=== PATIENT | female | born 1950 | race Caucasian/White ===

== ENCOUNTER 2017-04-17 12:02 | Inpatient (IN) | payer OTHER ==
[~2017-04-17] VITALS: Ht 170.2 cm; Wt 85.6 kg
[~2017-04-17 12:02] MED LIST: ACET1TAB84 PO; ASPEC81 PO; LPR25 PO; PRED5PAK3 PO; TMF75 PO
[2017-04-17] MEDS ORDERED: SODIUM CHLORIDE 0.9% 1000ML 1,000 ML IV STA ×2 (12:29→12:50)
[2017-04-17] MEDS ORDERED: ONDANSETRON INJ 2 MG/ML 2 ML VIAL IV STA (12:50)
--- NOTE | 2017-04-17 12:54 | EMERGENCY ROOM VISIT NOTE ---
History First contact with patient: 12:29 Chief Complaint: KIDNEY STONE Stated Complaint: ABD PAIN, VOM, SEVERE L SIDE PAIN, KIDNEY STONE History of Present Illness The patient is a 67 year old female who presents to the Emergency Room with complaints of left abdominal pain. The patient also notes the following associated symptoms, nausea, vomiting, chills, urinary pressure, and dry mouth. This started 3 days ago and is worsening. The patient has tried relieving factors, tylenol, without relief. Pt denies LOC, headache, fevers, diaphoresis, visual changes, neck pain, chest pain, breathing difficulties, back pain, melena, hematochezia,numbness, weakness, lymphadenopathy, rash, or other complaints. Review of Systems See HPI for pertinent positives and negatives. A total of ten systems were reviewed and were otherwise negative. Past Medical/Surgical History Medical Problems: (1) Kidney stones (2) Knee effusion, left (3) Leg pain, left (4) Renal calculus, left Surgical Problems: (1) History of partial hysterectomy (2) Hx of cholecystectomy Family History Blood clots Social History Smoking Status: Former Smoker Drug Use: none Marital Status: Housing Status: lives with significant other Occupation Status: employed Current/Historical Medications Scheduled PRN Acetaminophen (Tylenol Arthritis Ext Rel), 1,300 MG PO BID PRN for Pain or Fever Physical Exam Vital Signs Date Time Temp Pulse Resp B/P (MAP) Pulse Ox O2 Delivery O2 Flow Rate FiO2 04/17/17 14:55 80 18 157/84 97 Nasal Cannula 2.0 04/17/17 13:59 84 18 184/84 99 Nasal Cannula 2.0 04/17/17 13:15 93 04/17/17 13:14 100 Nasal Cannula 2.0 04/17/17 13:12 85 Room Air 04/17/17 13:02 93 18 129/109 98 Room Air 04/17/17 12:07 36.6 94 20 184/109 96 Room Air Physical Exam GENERAL: Awake, alert, very uncomfortable-appearing, in distress HENT: Normocephalic, atraumatic. Oropharynx unremarkable. EYES: Normal conjunctiva. Sclera non-icteric. NECK: Supple. No nuchal rigidity. FROM. No JVD. RESPIRATORY: Clear to auscultation. CARDIAC: Regular rate, normal rhythm. Extremities warm and well perfused. Pulses equal. ABDOMEN: Soft, non-distended. Left sided tenderness to palpation. No rebound or guarding. No masses. RECTAL: Deferred. MUSCULOSKELETAL: Chest examination reveals no tenderness. The back is symmetrical on inspection without obvious abnormality. There is no CVA tenderness to palpation. No joint edema. LOWER EXTREMITIES: Calves are equal size bilaterally and non-tender. No edema. No discoloration. NEURO: Normal sensorium. No sensory or motor deficits noted. SKIN: No rash or jaundice noted. Medical Decision & Procedures Laboratory Results 04/17/17 12:30 Red Blood Count 4.53, Mean Corpuscular Volume 89.0, Mean Corpuscular Hemoglobin 30.7, Mean Corpuscular Hemoglobin Concent 34.5, Mean Platelet Volume 10.1, Neutrophils (%) (Auto) 68.4, Lymphocytes (%) (Auto) 23.4, Monocytes (%) (Auto) 6.9, Eosinophils (%) (Auto) 0.9, Basophils (%) (Auto) 0.1, Neutrophils # (Auto) 10.24, Lymphocytes # (Auto) 3.50, Monocytes # (Auto) 1.04, Eosinophils # (Auto) 0.14, Basophils # (Auto) 0.02 04/17/17 12:30 Test 04/17/17 12:30 White Blood Count 14.98 K/uL (4.8-10.8) Red Blood Count 4.53 M/uL (4.2-5.4) Hemoglobin 13.9 g/dL (12.0-16.0) Hematocrit 40.3 % (37-47) Mean Corpuscular Volume 89.0 fL (80-100) Mean Corpuscular Hemoglobin 30.7 pg (25-34) Mean Corpuscular Hemoglobin Concent 34.5 g/dl (32-36) Platelet Count 253 K/uL (130-400) Mean Platelet Volume 10.1 fL (7.4-10.4) Neutrophils (%) (Auto) 68.4 % Lymphocytes (%) (Auto) 23.4 % Monocytes (%) (Auto) 6.9 % Eosinophils (%) (Auto) 0.9 % Basophils (%) (Auto) 0.1 % Neutrophils # (Auto) 10.24 K/uL (1.4-6.5) Lymphocytes # (Auto) 3.50 K/uL (1.2-3.4) Monocytes # (Auto) 1.04 K/uL (0.11-0.59) Eosinophils # (Auto) 0.14 K/uL (0-0.5) Basophils # (Auto) 0.02 K/uL (0-0.2) RDW Standard Deviation 40.7 fL (36.4-46.3) RDW Coefficient of Variation 12.6 % (11.5-14.5) Immature Granulocyte % (Auto) 0.3 % Immature Granulocyte # (Auto) 0.04 K/uL (0.00-0.02) Anion Gap 8.0 mmol/L (3-11) Est Creatinine Clear Calc Drug Dose 54.8 ml/min Estimated GFR () 57.8 Estimated GFR (Non- 49.9 BUN/Creatinine Ratio 15.0 (10-20) Calcium Level 9.9 mg/dl (8.5-10.1) Total Bilirubin 0.3 mg/dl (0.2-1) Direct Bilirubin < 0.1 mg/dl (0-0.2) Aspartate Amino Transf (AST/SGOT) 21 U/L (15-37) Alanine Aminotransferase (ALT/SGPT) 31 U/L (12-78) Alkaline Phosphatase 84 U/L (45-117) Total Protein 8.1 gm/dl (6.4-8.2) Albumin 3.9 gm/dl (3.4-5.0) Lipase 231 U/L (73-393) Medications Administered Medications (Trade) Dose Ordered Sig/Leobardo Route Start Time Stop Time Status Last Admin Dose Admin Sodium Chloride 1,000 ml @ 125 mls/hr Q8H STAT IV 04/17/17 12:29 04/17/17 17:42 DC 04/17/17 13:05 125 MLS/HR Hydromorphone HCl (Dilaudid Inj) 1 mg Q15M PRN IV 04/17/17 13:00 04/17/17 17:43 DC 04/17/17 13:57 1 MG Ondansetron HCl (Zofran Inj) 4 mg NOW STAT IV 04/17/17 12:50 04/17/17 12:52 DC 04/17/17 13:06 4 MG Sodium Chloride 1,000 ml @ 999 mls/hr Q1H1M STAT IV 04/17/17 12:50 04/17/17 13:50 DC 04/17/17 13:05 999 MLS/HR Tamsulosin HCl (Flomax Cap) 0.4 mg NOW ONCE PO 04/17/17 15:45 04/17/17 15:57 DC 04/17/17 16:44 0.4 MG Medical Decision Triage Nursing notes reviewed. The patient's presentation and history were concerning for left flank pain and vomiting. Etiologies such as renal colic, appendicitis, diverticulitis, mesenteric ischemia, aortic pathology, infections, inflammatory bowel disease, PUD, biliary pathology, UTI, as well as others were entertained. The patient was evaluated. She was treated with IV Dilaudid and Zofran. She was hydrated. She required multiple doses of Dilaudid. Her CBC showed a leukocytosis of 14,000. Chemistry panel was unremarkable. The patient's urinalysis is pending. She underwent CT imaging and this showed an obstructing stone. Given her intractable pain and obstructing stone she will need further evaluation and management in the hospital. I did discuss the case with the [facility] hospitalist. The patient was evaluated in the Emergency Room for further treatment. Consults Consulting Physician: Dr. Orellana Will see for admission secondary to intractable flank pain and obstructing stone. Impression Primary Impression: Renal calculus, left Departure Information Dispostion Being Evaluated By Hospitalist Referrals Rhett Diallo M.D. (PCP) Patient Instructions My [facility]
[2017-04-17 12:59] LABS: ALBUMIN 3.9 gm/dl (3.4-5.0); AST/SGOT 21 U/L (15-37); BLOOD UREA NITROGEN 17 mg/dl (7-18); CALCIUM 9.9 mg/dl (8.5-10.1); CARBON DIOXIDE 24 mmol/L (21-32); CREATININE 1.15 mg/dl (0.60-1.20); GLUCOSE 135 mg/dl (70-99); LIPASE 231 U/L (73-393); POTASSIUM 3.7 mmol/L (3.5-5.1); SODIUM 137 mmol/L (136-145)
[2017-04-17 13:00] LABS: BASO % 0.1 %; BASO ABS # 0.02 K/uL (0-0.2); EOS % 0.9 %; EOS ABS # 0.14 K/uL (0-0.5); HEMATOCRIT 40.3 % (37-47); HEMOGLOBIN 13.9 g/dL (12.0-16.0); IG# 0.04 K/uL (0.00-0.02); LYMPH % 23.4 %; MEAN CORPUSCULAR HEMOGLOBIN 30.7 pg (25-34); MEAN CORPUSCULAR HGB CONC 34.5 g/dl (32-36); MEAN PLATELET VOLUME 10.1 fL (7.4-10.4); MONO % 6.9 %; MONO ABS # 1.04 K/uL (0.11-0.59); NEUT % 68.4 %; NEUT ABS # 10.24 K/uL (1.4-6.5); PLATELET COUNT 253 K/uL (130-400); RED CELL DISTRIBUTION WIDTH CV 12.6 % (11.5-14.5); RED CELL DISTRIBUTION WIDTH SD 40.7 fL (36.4-46.3); WHITE BLOOD COUNT 14.98 K/uL (4.8-10.8)
[2017-04-17 13:03] LABS: ALKALINE PHOSPHATASE 84 U/L (45-117); ALT/SGPT 31 U/L (12-78); TOTAL PROTEIN 8.1 gm/dl (6.4-8.2)
[2017-04-17] MEDS: HYDROmorphone INJ 1 MG/ML SYR IV PRN ×2 (13:06→13:57)
--- NOTE | 2017-04-17 13:51 | DIAGNOSTIC IMAGING REPORT ---
ABD/PELVIS WITHOUT FOR STONE CLINICAL HISTORY: 67 years-old Female presenting with left flank pain, history of renal stones, nausea and vomiting. TECHNIQUE: Multidetector CT of the abdomen and pelvis was performed without the use of intravenous contrast. IV contrast: None. A dose lowering technique was used consistent with the principles of ALARA (as low as reasonably achievable). COMPARISON: 05/27/2015. CT DOSE (mGy.cm): The estimated cumulative dose is 1353.48 mGy.cm. FINDINGS: [employer] topogram: Cholecystectomy clips. Lung bases: 3 mm solid peripheral nodule in the left lower lobe, unchanged since prior CTA chest from 05/26/2015. Coronary artery and aortic valve calcification. Normal heart size. No pericardial or pleural effusion. Liver: Normal morphology. Density consistent with hepatic steatosis. Well-defined hypodensity in the medial segment of the left hepatic lobe, indeterminate but likely hepatic cyst, unchanged from prior. Biliary: Mild biliary ductal prominence likely a reservoir effect in the post cholecystectomy state. Gallbladder surgically absent. Pancreas: Mild parenchymal atrophy. Spleen: Normal noncontrast appearance. Adrenal glands: Normal noncontrast appearance. Kidneys and ureters: Obstructing 7 mm calculus at the left ureterovesical junction with resultant mild left hydroureteronephrosis. Mild left perinephric fat stranding and subtle left renal enlargement noted. The left renal parenchyma is mildly edematous. No additional calculi are evident in either kidney or ureter. Bladder: Normal. No bladder calculi. Pelvic organs: Uterus surgically absent. Normal noncontrast appearance of the ovaries. Bowel: Diverticulosis of the descending and sigmoid colon. No pericolonic fat infiltration. Few scattered diverticula noted elsewhere in the colon. The appendix is normal. No bowel obstruction. Small hiatal hernia may be present. Peritoneal cavity: No free fluid or intraperitoneal gas. Lymph nodes: No gross lymphadenopathy allowing for noncontrast technique. Vasculature: Atherosclerosis of the normal caliber abdominal aorta. Abdominal wall: Normal. Musculoskeletal: Degenerative changes of the spine. Anterior vertebral body height loss of T11 unchanged from prior exam. Mild osteopenia. IMPRESSION: 1. Obstructing 7 mm calculus at the left ureterovesical junction with resultant mild left hydroureteronephrosis. No additional renal or ureteral calculus. 2. Mild osteopenia. Electronically signed by: Saulo Willson M.D. 04/17/2017 1:49 PM Dictated Date/Time: 04/17/2017 1:41 PM
[2017-04-17] MEDS ORDERED: MAGNESIUM HYDROXIDE SUSP 30 ML UDC PO PRN (15:45)
[2017-04-17] MEDS ORDERED: ACETAMINOPHEN 325 MG TAB PO PRN (15:45)
[2017-04-17] MEDS ORDERED: ALUMINUM/MAGNESIUM/SIMETH (MAALOX MAX) 30 ML UDC PO PRN (15:45)
[2017-04-17] MEDS ORDERED: ONDANSETRON INJ 2 MG/ML 2 ML VIAL IV PRN (15:45)
[2017-04-17] MEDS ORDERED: POLYETHYLENE (MIRALAX) 17 GM PACK PO PRN (15:45)
[2017-04-17] MEDS ORDERED: HYDROmorphone INJ 1 MG/ML SYR IV PRN (15:45)
[2017-04-17] MEDS ORDERED: TAMSULOSIN HCL 0.4 MG CAP PO ONE (15:45)
--- NOTE | 2017-04-17 15:59 | History and Physical ---
History & Physical Date & Time of Service: Apr 17, 2017 at 15:50 Chief Complaint: Abd Pain, Vom, Severe L Side Pain, Kidney Stone Primary Care Physician: Rhett Diallo M.D. History of Present Illness Source: patient, clinic records, hospital records Patient is a pleasant 67 y/o female, with PMHx of nephrolithiasis and diastolic dysfunction, who presented to the ED because of L flank pain radiating to groin and N/V x2 days. 2 weeks ago patient started to experience urinary frequency and hesitancy. She thought maybe she was getting a UTI. Symptoms continued to worsening and two days ago she started to experience the flank pain and N/V. Patient was found to have 7 mm calculus at L ureterovesical junction w/ L hydro. She was treated w/ IV Dilaudid and IVF in ED- pain is currently well controlled. She does have a h/o kidney stones resulting in sepsis and requiring stent placement by Dr. Berumen. +chills. Patient denies any fever, sweats, lightheadedness, dizziness, vision changes, CP, palpitations, edema, SOB, wheezing, cough, diarrhea, melena, numbness/tingling, weakness, muscle/joint pain, anxiety/depression, active bleeding, or new skin discoloration/changes. Past Medical/Surgical History Medical Problems: nephrolithiasis diastolic dysfunction Surgical Problems: History of partial hysterectomy Hx of cholecystectomy L foot surgery R shoulder surgery Family History Cancer, HTN, heart disease Social History Smoking Status: Former Smoker Drug Use: none Marital Status: Occupational Status: employed Immunizations History of Influenza Vaccine: No History of Tetanus Vaccine?: Yes Tetanus Immunization Date: July 19, 2006 History of Pneumococcal: No History of Hepatitis B Vaccine: Yes Hepatitis Immunization Date: Jan 20, 1992 Multi-Drug Resistant Organisms History of MDRO: No Allergies Coded Allergies: Diclofenac (Verified Allergy, Unknown, MOUTH THICKNESS AND NUMBNESS, ) ABLE TO TAKE ASPIRIN WITHOUT PROBLEMS Home Medications Scheduled PRN Acetaminophen (Tylenol Arthritis Ext Rel), 1,300 MG PO BID PRN for Pain or Fever Physical Exam Vital Signs Date Time Temp Pulse Resp B/P (MAP) Pulse Ox O2 Delivery O2 Flow Rate FiO2 04/17/17 14:55 80 18 157/84 97 Nasal Cannula 2.0 04/17/17 13:59 84 18 184/84 99 Nasal Cannula 2.0 04/17/17 13:15 93 04/17/17 13:14 100 Nasal Cannula 2.0 04/17/17 13:12 85 Room Air 04/17/17 13:02 93 18 129/109 98 Room Air 04/17/17 12:07 36.6 94 20 184/109 96 Room Air General Appearance: no apparent distress Head: normocephalic, atraumatic Eyes: normal inspection, PERRL ENT: hearing grossly normal Neck: supple Respiratory/Chest: lungs clear, no respiratory distress, no accessory muscle use Cardiovascular: regular rate, rhythm Abdomen/GI: normal bowel sounds, non tender, soft Back: normal inspection Extremities/Musculoskelatal: no calf tenderness, no pedal edema Neurologic/Psych: alert, normal mood/affect, oriented x 3 Skin: normal color, warm/dry, no rash Diagnostics Laboratory Results Results Past 24 Hours Test 04/17/17 12:30 Range/Units White Blood Count 14.98 4.8-10.8 K/uL Red Blood Count 4.53 4.2-5.4 M/uL Hemoglobin 13.9 12.0-16.0 g/dL Hematocrit 40.3 37-47 % Mean Corpuscular Volume 89.0 80-100 fL Mean Corpuscular Hemoglobin 30.7 25-34 pg Mean Corpuscular Hemoglobin Concent 34.5 32-36 g/dl Platelet Count 253 130-400 K/uL Mean Platelet Volume 10.1 7.4-10.4 fL Neutrophils (%) (Auto) 68.4 % Lymphocytes (%) (Auto) 23.4 % Monocytes (%) (Auto) 6.9 % Eosinophils (%) (Auto) 0.9 % Basophils (%) (Auto) 0.1 % Neutrophils # (Auto) 10.24 1.4-6.5 K/uL Lymphocytes # (Auto) 3.50 1.2-3.4 K/uL Monocytes # (Auto) 1.04 0.11-0.59 K/uL Eosinophils # (Auto) 0.14 0-0.5 K/uL Basophils # (Auto) 0.02 0-0.2 K/uL RDW Standard Deviation 40.7 36.4-46.3 fL RDW Coefficient of Variation 12.6 11.5-14.5 % Immature Granulocyte % (Auto) 0.3 % Immature Granulocyte # (Auto) 0.04 0.00-0.02 K/uL Sodium Level 137 136-145 mmol/L Potassium Level 3.7 3.5-5.1 mmol/L Chloride Level 105 98-107 mmol/L Carbon Dioxide Level 24 21-32 mmol/L Anion Gap 8.0 3-11 mmol/L Blood Urea Nitrogen 17 7-18 mg/dl Creatinine 1.15 0.60-1.20 mg/dl Est Creatinine Clear Calc Drug Dose 54.8 ml/min Estimated GFR () 57.8 Estimated GFR (Non- 49.9 BUN/Creatinine Ratio 15.0 10-20 Random Glucose 135 70-99 mg/dl Calcium Level 9.9 8.5-10.1 mg/dl Total Bilirubin 0.3 0.2-1 mg/dl Direct Bilirubin < 0.1 0-0.2 mg/dl Aspartate Amino Transf (AST/SGOT) 21 15-37 U/L Alanine Aminotransferase (ALT/SGPT) 31 12-78 U/L Alkaline Phosphatase 84 45-117 U/L Total Protein 8.1 6.4-8.2 gm/dl Albumin 3.9 3.4-5.0 gm/dl Lipase 231 73-393 U/L Diagnostic Radiology ABD/PELVIS WITHOUT FOR STONE CLINICAL HISTORY: 67 years-old Female presenting with left flank pain, history of renal stones, nausea and vomiting. TECHNIQUE: Multidetector CT of the abdomen and pelvis was performed without the use of intravenous contrast. IV contrast: None. A dose lowering technique was used consistent with the principles of ALARA (as low as reasonably achievable). COMPARISON: 05/27/2015. CT DOSE (mGy.cm): The estimated cumulative dose is 1353.48 mGy.cm. FINDINGS: [employer] topogram: Cholecystectomy clips. Lung bases: 3 mm solid peripheral nodule in the left lower lobe, unchanged since prior CTA chest from 05/26/2015. Coronary artery and aortic valve calcification. Normal heart size. No pericardial or pleural effusion. Liver: Normal morphology. Density consistent with hepatic steatosis. Well-defined hypodensity in the medial segment of the left hepatic lobe, indeterminate but likely hepatic cyst, unchanged from prior. Biliary: Mild biliary ductal prominence likely a reservoir effect in the post cholecystectomy state. Gallbladder surgically absent. Pancreas: Mild parenchymal atrophy. Spleen: Normal noncontrast appearance. Adrenal glands: Normal noncontrast appearance. Kidneys and ureters: Obstructing 7 mm calculus at the left ureterovesical junction with resultant mild left hydroureteronephrosis. Mild left perinephric fat stranding and subtle left renal enlargement noted. The left renal parenchyma is mildly edematous. No additional calculi are evident in either kidney or ureter. Bladder: Normal. No bladder calculi. Pelvic organs: Uterus surgically absent. Normal noncontrast appearance of the ovaries. Bowel: Diverticulosis of the descending and sigmoid colon. No pericolonic fat infiltration. Few scattered diverticula noted elsewhere in the colon. The appendix is normal. No bowel obstruction. Small hiatal hernia may be present. Peritoneal cavity: No free fluid or intraperitoneal gas. Lymph nodes: No gross lymphadenopathy allowing for noncontrast technique. Vasculature: Atherosclerosis of the normal caliber abdominal aorta. Abdominal wall: Normal. Musculoskeletal: Degenerative changes of the spine. Anterior vertebral body height loss of T11 unchanged from prior exam. Mild osteopenia. IMPRESSION: 1. Obstructing 7 mm calculus at the left ureterovesical junction with resultant mild left hydroureteronephrosis. No additional renal or ureteral calculus. 2. Mild osteopenia. Electronically signed by: Saulo Willson M.D. 04/17/2017 1:49 PM Dictated Date/Time: 04/17/2017 1:41 PM The status of this report is Signed. Draft = Not yet reviewed or approved by Radiologist. Signed = Reviewed and approved by Radiologist. Impression Assessment and Plan Patient is a pleasant 67 y/o female, with PMHx of nephrolithiasis and diastolic dysfunction, who presented to the ED because of L flank pain radiating to groin and N/V x2 days. L ureterovesical junction w/ L hydro: - Admit to med/surg - UA and BCx pending - Leukocytosis- start IV Rocephin - Flomax 0.4 mg daily - Strain urine - IV NSS @ 100 ml/hr - IV Dilaudid 1 mg q3 hrs PRN for pain management and Tylenol PRN for pain/ fever - Will make NPO after midnight incase procedure warranted tomorrow - Consult urology, appreciate recommendations GI prophylaxis: Protonix daily DVT prophylaxis: TEDs, SCDs, ambulation; hold chemical anticoagulation pending urology consultation Code status: LEVEL I, FULL Dispo: From home- no discharge needs anticipated Level of Care Med/Surg Resuscitation Status FULL RESUSCITATION VTE Prophylaxis VTE Risk Assessment Done? Y/N: Yes Risk Level: Moderate Given or contraindicated: Contraindicated Note Attending Admission Note & Attestation: Pt seen/examined, chart reviewed, care plan d/w LEN Angulo. I agree w/ the benites components of her admission documentation. 67yo female with h/o multiple kidney stones over the years some of which required intervention who presented with left flank pain radiating to the left groin. +frequency, nausea, emesis but no fever. Some chills, however. Found to have 7mm left-sided UVJ stone causing obstruction. At the time of my assessment her pain was much better following pain meds in the ER. PMH, PSH, allergies, meds, sochx, famhx, ros - reviewed VSS, no fever gen - nad neck - no JVD mouth - MMM heart - RRR, s1, s2 lungs - CTA b/l abd - minimal tenderness left flank, BS+, ND, soft ext - no edema A/P: 7mm left-sided UVJ kidney stone leukocytosis with question early UTI/pyelonephritis in setting of the stone - u/ a pending h/o diastolic dysfunction but appears compensated on physical exam agree with IVF, NPO after MN in the event she needs intervention, urology consultation, pain control, rocephin while awaiting urine culture Don Castro MD
[2017-04-17 16:22] VITALS: Ht 170.2 cm; Wt 85.6 kg
[2017-04-17 17:05] VITALS: BP 171/85; PULSE 93; TEMP 36.4; O2SAT 93
[2017-04-17] MEDS: SODIUM CHLORIDE 0.9% 1000ML 1,000 ML IV SCH (17:45)
[2017-04-17] MEDS ORDERED: CEFTRIAXONE SOD INJ 1 GM in DEXTROSE 5% ADD-VANTAGE 50ML 50 ML IV SCH (18:00)
[2017-04-17 23:02] VITALS: BP 131/78; PULSE 71; TEMP 36.5; O2SAT 96
[2017-04-18] MEDS: SODIUM CHLORIDE 0.9% 1000ML 1,000 ML IV SCH (03:26)
[2017-04-18 07:50] VITALS: BP 114/74; PULSE 59; TEMP 36.5; O2SAT 96
[2017-04-18 08:00] VITALS: O2SAT 96
[2017-04-18 08:22] LABS: HEMATOCRIT 34.5 % (37-47); HEMOGLOBIN 11.3 g/dL (12.0-16.0); MEAN CELL VOLUME 91.5 fL (80-100); MEAN CORPUSCULAR HGB CONC 32.8 g/dl (32-36); MEAN PLATELET VOLUME 9.8 fL (7.4-10.4); PLATELET COUNT 171 K/uL (130-400); RED CELL DISTRIBUTION WIDTH CV 12.8 % (11.5-14.5); WHITE BLOOD COUNT 6.65 K/uL (4.8-10.8)
--- NOTE | 2017-04-18 08:41 | Urology Consultation ---
History General Date of Service: Apr 18, 2017. Chief Complaint: left ureteral stone Primary Care Physician: Rhett Diallo M.D. Pt seen a urologist before?: Yes (Dr. Berumen ) If yes, why?: nephrolithiasis History of Present Illness 67 yo female presents to [facility] with c/o left flank pain that started 4 days ago. She reports the pain was accompanied by n/v and chills. CT scan on admission shows a 7mm left UVJ stone. She reports a hx of stent placement by Dr. Berumen many years ago for sepsis. UA today showing some pyuria and hematuria. She denies any dysuria or hematuria this morning. She is afebrile. White count has normalized since admission. Cr was normal at 1.15 on admission. She reports all pain has resolved this morning as she has passed a stone. Appears to have a stone approximately 5-7mm in size in a specimen cup this morning. Imaging Imaging: CT Laboratory Last 24 Hours Test 04/17/17 12:30 04/17/17 23:15 04/18/17 07:49 White Blood Count 14.98 K/uL 6.65 K/uL Red Blood Count 4.53 M/uL 3.77 M/uL Hemoglobin 13.9 g/dL 11.3 g/dL Hematocrit 40.3 % 34.5 % Mean Corpuscular Volume 89.0 fL 91.5 fL Mean Corpuscular Hemoglobin 30.7 pg 30.0 pg Mean Corpuscular Hemoglobin Concent 34.5 g/dl 32.8 g/dl Platelet Count 253 K/uL 171 K/uL Mean Platelet Volume 10.1 fL 9.8 fL Neutrophils (%) (Auto) 68.4 % Lymphocytes (%) (Auto) 23.4 % Monocytes (%) (Auto) 6.9 % Eosinophils (%) (Auto) 0.9 % Basophils (%) (Auto) 0.1 % Neutrophils # (Auto) 10.24 K/uL Lymphocytes # (Auto) 3.50 K/uL Monocytes # (Auto) 1.04 K/uL Eosinophils # (Auto) 0.14 K/uL Basophils # (Auto) 0.02 K/uL RDW Standard Deviation 40.7 fL 43.0 fL RDW Coefficient of Variation 12.6 % 12.8 % Immature Granulocyte % (Auto) 0.3 % Immature Granulocyte # (Auto) 0.04 K/uL Sodium Level 137 mmol/L Potassium Level 3.7 mmol/L Chloride Level 105 mmol/L Carbon Dioxide Level 24 mmol/L Anion Gap 8.0 mmol/L Blood Urea Nitrogen 17 mg/dl Creatinine 1.15 mg/dl Est Creatinine Clear Calc Drug Dose 54.8 ml/min Estimated GFR () 57.8 Estimated GFR (Non- 49.9 BUN/Creatinine Ratio 15.0 Random Glucose 135 mg/dl Calcium Level 9.9 mg/dl Total Bilirubin 0.3 mg/dl Direct Bilirubin < 0.1 mg/dl Aspartate Amino Transf (AST/SGOT) 21 U/L Alanine Aminotransferase (ALT/SGPT) 31 U/L Alkaline Phosphatase 84 U/L Total Protein 8.1 gm/dl Albumin 3.9 gm/dl Lipase 231 U/L Urine Color YELLOW Urine Appearance CLEAR Urine pH 7.5 Urine Specific [place] 1.018 Urine Protein NEG Urine Glucose (UA) NEG Urine Ketones NEG Urine Occult Blood 2+ Urine Nitrite NEG Urine Bilirubin NEG Urine Urobilinogen NEG Urine Leukocyte Esterase SMALL Urine WBC (Auto) 10-30 /hpf Urine RBC (Auto) >30 /hpf Urine Hyaline Casts (Auto) 10-30 /lpf Urine Epithelial Cells (Auto) >30 /lpf Urine Bacteria (Auto) NEG Urine Renal Epithelial Cells 5-10 /lpf Problem List Medical Problems: (1) Abnormal EKG Status: Acute (2) Elevated troponin Status: Acute (3) Fever Status: Acute (4) Hypoxia Status: Acute (5) Transient hypotension Status: Acute Past History kidney stones, other (diastolic dysfunction) Past Surgical History: cholecystectomy, hysterectomy, orthopedic surgery (left foot, right shoulder), ureteral stent Family History Blood clots cancer, HTN, heart disease Social History Hx Tobacco Use In Past Year?: No Smoking: other (former smoker) Drug use: none Marital status: Housing status: lives with family Occupation status: employed Immunizations History of Influenza Vaccine: No History of Tetanus Vaccine?: Yes Tetanus Immunization Date: July 19, 2006 History of Pneumococcal: No History of Hepatitis B Vaccine: Yes Hepatitis Immunization Date: Jan 20, 1992 History of MDRO No Allergies Coded Allergies: Diclofenac (Verified Allergy, Unknown, MOUTH THICKNESS AND NUMBNESS, ) ABLE TO TAKE ASPIRIN WITHOUT PROBLEMS Medications Home Medications: Home Meds and Scripts Medications Dose Route/Sig Max Daily Dose Days Date Category Tylenol Arthritis Ext Rel (Acetaminophen) 650 Mg Cplt 1,300 Mg PO BID PRN 05/26/15 Reported Inpatient Medications: Current Inpatient Medications Medications (Trade) Dose Ordered Sig/Leobardo Route Start Time Stop Time Status Last Admin Dose Admin Acetaminophen (Tylenol Tab) 650 mg Q4H PRN PO 04/17/17 15:45 05/17/17 15:44 Al Hydrox/Mg Hydrox/Simethicone (Maalox Max Susp) 15 ml Q4H PRN PO 04/17/17 15:45 05/17/17 15:44 04/17/17 23:27 15 ML Magnesium Hydroxide (Milk Of Magnesia Susp) 30 ml Q6H PRN PO 04/17/17 15:45 05/17/17 15:44 Polyethylene (Miralax Powder Packet) 17 gm DAILY PRN PO 04/17/17 15:45 05/17/17 15:44 Ondansetron HCl (Zofran Inj) 4 mg Q6H PRN IV 04/17/17 15:45 05/17/17 15:44 Tamsulosin HCl (Flomax Cap) 0.4 mg QAM PO 04/18/17 09:00 05/18/17 08:59 Hydromorphone HCl (Dilaudid Inj) 1 mg Q3H PRN IV 04/17/17 15:45 05/01/17 15:44 Ceftriaxone Sodium 1 gm/ Dextrose 50 ml @ 100 mls/hr Q24H IV 04/17/17 18:00 04/27/17 17:59 04/17/17 18:29 100 MLS/HR Sodium Chloride 1,000 ml @ 80 mls/hr [id number] IV 04/17/17 17:45 05/17/17 17:44 04/18/17 03:26 80 MLS/HR Pantoprazole Sodium (Protonix Tab) 40 mg QAM PO 04/18/17 09:00 04/22/17 08:59 Review of Systems Review of Systems Constitutional: No fever, No chills Eyes: No double vision Neurological: No dizzy Endocrine: No excessive thirst Gastrointestinal: No abdominal pain, No nausea, No vomiting Cardiovascular: No chest pain Respiratory: No shortness of breath Skin: No rash Musculoskeletal: No back pain Female : No painful urination, No blood in urine Physical Exam Vital Signs: Vital Signs Past 12 Hours Date Time Temp Pulse Resp B/P (MAP) Pulse Ox O2 Delivery O2 Flow Rate FiO2 04/18/17 08:00 96 Room Air 04/18/17 07:50 36.5 59 18 114/74 (87) 96 Room Air 04/18/17 07:21 Room Air 04/17/17 23:02 36.5 71 17 131/78 (95) 96 Room Air Physical Exam: General Appearance: no apparent distress Eyes: bilateral eyes normal inspection ENT: hearing grossly normal Neck: no JVD Respiratory/Chest: no respiratory distress, no accessory muscle use Cardiovascular: no JVD Extremities: normal inspection Neurologic/Psychiatric: alert, normal mood/affect, oriented x 3 Skin: normal color Assessment & Plan Assessment & Plan A/P: 7mm left UVJ stone AFVSS. Pt passed stone overnight. Pain resolved this morning. Will confirm passed with K[facility] and send stone for analysis. No further renal stones seen on CT scan. Will send a UC&S. Pt OK for d/c home from standpoint. Will arrange for outpatient f/u in 2 months. Thanks for the consult.
[2017-04-18 08:53] LABS: CALCIUM 8.6 mg/dl (8.5-10.1); CREATININE 0.85 mg/dl (0.60-1.20); POTASSIUM 3.5 mmol/L (3.5-5.1)
[2017-04-18] MEDS ORDERED: PANTOprazole SOD 40 MG TAB PO SCH (09:00)
[2017-04-18] MEDS ORDERED: TAMSULOSIN HCL 0.4 MG CAP PO SCH (09:00)
--- NOTE | 2017-04-18 09:35 | DIAGNOSTIC IMAGING REPORT ---
[facility] CLINICAL HISTORY: left UVJ stone on CT COMPARISON STUDY: CT scan dated April 17, 2017 FINDINGS: There is no pathologic bowel dilatation. The renal shadows are partially obscured overlying bowel gas and fecal material. No renal calculi are visualized. The 7 mm left UVJ calculus described on the CT scan performed April 17, 2017, is not visualized on conventional radiographic imaging. Small pelvic basin calcifications likely represent phleboliths. IMPRESSION: The recently described distal left ureteral calculus is not visualized on conventional radiographic imaging. Electronically signed by: Sami Burns M.D. 04/18/2017 9:34 AM Dictated Date/Time: 04/18/2017 9:03 AM
[2017-04-18] MEDS ORDERED: CEPH500C2 PO (14:03)
--- NOTE | 2017-04-18 14:07 | Discharge Instructions ---
Discharge Instructions Date of Service Apr 18, 2017. Admission Reason for Admission: Renal Calculus, Left Discharge Discharge Diagnosis / Problem: Left Kidney Stoned, Passed Discharge Goals Goal(s): Therapeutic intervention Activity Recommendations Activity Limitations: resume your previous activity Lifting Limitations: none Exercise/Sports Limitations: none May Resume Sexual Activity: when tolerated Shower/Bathe: no limitations . Instructions / Follow-Up Instructions / Follow-Up You were admitted because of a left-sided kidney stone. We gave you Flomax to help you relax your urinary tract and you were able to pass the stone spontaneously. Our urology service was consulted as well and recommend you see them in their office in 2 weeks. You did have slightly abnormal urine that may suggest a mild urinary tract infection so when you go home, we will prescribe you an antibiotic. This has been sent directly to your pharmacy. When you go home, please ensure that you remain well hydrated. If your symptoms return, please seek medical attention immediately by either calling your primary care provider or going to your nearest emergency department. Otherwise, please see your primary care provider within 1 week to ensure that your symptoms continue to improve. It was a pleasure to be involved in your care and we wish you all the best. Current Hospital Diet Patient's current hospital diet: Regular Diet Discharge Diet Recommended Diet: Regular Diet Pending Studies Studies pending at discharge: no Medical Emergencies . Who to Call and When: Medical Emergencies: If at any time you feel your situation is an emergency, please call 911 immediately. . Non-Emergent Contact Non-Emergency issues call your: Primary Care Provider Call Non-Emergent contact if: you have a fever, your pain is not controlled, you have any medication questions . . "Provider Documentation" section prepared by Abdirahman Gautam. . VTE Core Measure Inpt VTE Proph given/why not?: Contraindicated
[2017-04-18] MEDS ORDERED: CEPHALEXIN MONOHYDRATE 500 MG CAP PO ONE (14:15)
[2017-04-18 15:28] VITALS: BP 114/74; PULSE 59; TEMP 36.5; O2SAT 96
--- NOTE | 2017-04-18 16:56 | Discharge Summary ---
Discharge Summary Date of Service Apr 18, 2017. Discharge Summary Admission Date: Apr 17, 2017 at 15:49 Discharge Date: Apr 18, 2017 Discharge Disposition: Home Principal Diagnosis: Kidney Stone Immunizations: Have You Had Influenza Vaccine: No History of Tetanus Vaccine?: Yes Tetanus Immunization Date: July 19, 2006 History of Pneumococcal: No History of Hepatitis B Vaccine: Yes Hepatitis Immunization Date: Jan 20, 1992 Consultations: Urology Medication Reconciliation New Medications: Cephalexin Monohydrate (Keflex) 500 Mg Cap 500 MG PO BID for 5 Days, #10 CAP Continued Medications: Acetaminophen (Tylenol Arthritis Ext Rel) 650 Mg Cplt 1300 MG PO BID PRN for Pain or Fever Discharge Exam Patient feeling well and without any abdominal pain, nausea or urinary issues Spontaneously passed a stone this morning and ready to go home Review of Systems: Constitutional: No fever, No chills, No sweats Respiratory: No cough, No sputum Cardiovascular: No chest pain, No edema, No claudication Abdomen: No pain, No nausea, No vomiting, No diarrhea Musculoskeletal: No joint pain, No muscle pain Genitourinary - Female: No dysuria, No urinary frequency Physical Exam: General Appearance: WD/WN, no apparent distress Neck: no JVD, trachea midline Respiratory/Chest: lungs clear, no respiratory distress, no accessory muscle use Cardiovascular: regular rate, rhythm, no edema, no murmur, normal peripheral pulses Abdomen / GI: normal bowel sounds, non tender, soft Extremities: no calf tenderness, no pedal edema, normal range of motion Neurologic/Psychiatric: alert, normal mood/affect, oriented x 3 Hospital Course Patient is a pleasant 67 y/o female, with PMHx of nephrolithiasis and diastolic dysfunction, who presented to the ED because of L flank pain radiating to groin and N/V x2 days. L ureterovesical junction stone 7mm w/ L hydro: - Passed the stone in hospital into strainer---> being sent for pathology - Was given flomax and and IV fluids - UA showed possible UTI - Ucx and BCx pending at discharge - Discharged with keflex due U/A suggestive of infection (culture pending at discharge) - will f/u with urology in 1-2 weeks as outpatient Total Time Spent: Less than 30 minutes This includes examination of the patient, discharge planning, medication reconciliation, and communication with other providers. Discharge Instructions Please refer to the electronic Patient Visit Report (Discharge Instructions) for additional information. Resident Physician Supervision Note: I was present with Dr. Wu during the history and exam. I discussed the case with the resident and agree with the findings and plan as documented in the note. Any exceptions or clarifications are listed here: The patient was without complaint at discharge. Agree with oral Keflex at least until culture results are final. Documented By: Chauncey Nickerson Additional Copies To Rhett Diallo M.D.
== END 2017-04-18 15:30 | disposition home or self-care (01) | DRG 694 ==
LOC: C.EDB 12:04 → C.MSW 15:49 → ENRESERV 16:42
PROVIDERS: ADMIT Internal Medicine; ATTEND Internal Medicine
DX: N20.1 Calculus of ureter (principal); N39.0 Urinary tract infection, site not specified; Z87.442 Personal history of urinary calculi; Z87.891 Personal history of nicotine dependence; Z90.49 Acquired absence of other specified parts of digestive tract; Z90.711 Acquired absence of uterus with remaining cervical stump; Z98.890 Other specified postprocedural states; Z82.49 Family history of ischemic heart disease and other diseases of the circulatory system